=== PATIENT | female | born 1945 | race Caucasian/White ===

== ENCOUNTER 2016-11-01 19:02 | Emergency (ER) | payer MEDICARE, OTHER ==
[2016-11-01 19:27] VITALS: BP 134/47
--- NOTE | 2016-11-01 19:34 | EDM.PDOC ---
ED UPPER BACK/NECK PAIN/INJURY - General Chief Complaint: Back Pain or Injury Stated Complaint: LOW BACK PN Time Seen by Provider: 11/01/16 19:34 Source of Information: Reports: Patient History Limitations: Reports: No limitations - History of Present Illness INITIAL COMMENTS - FREE TEXT/NARRATIVE: patient presents to ED after 2 days of acute onset of mid thoracic back pain, worsening. She states pain is just between her shoulder blades, unprovoked by any known injury. 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 She denies any change in activity. She denies any chest pain, shortness of breath, cough, peripheral edema. Does report symptoms started yesterday morning at about 830 when she was filling juice cups. When she returned home, symptoms did improve with use of OTC NSAIDS, and she slept well, awoke without any return of pain until returning to work. She does have a fairly significant cardiac history, but has done well, and reports seeing her PCP as advised. Symptom Onset Date: 10/31/16 Symptom Onset Time: 08:30 Location: Reports: midline. Denies: radiating pain Quality: Reports: Pressure, Sharp Severity: moderate Place of Occurrence: work Improves with: Reports: Medication Worsens with: Reports: Movement Associated Symptoms: Denies: Chest pain, Cough, Paresthesias, Shortness of breath Treatments [employer]: Reports: NSAIDS - Related Data Allergies/ADRs: Allergies Allergy/AdvReac Type Severity Reaction Status Date / Time No Known Allergies Allergy Verified 11/01/16 19:15 Home Meds: Home Meds Aspirin [Halfprin] 81 mg PO DAILY 10/28/14 [History] Diazepam [Valium] 5 mg PO ASDIRECTED PRN 10/28/14 [History] Lisinopril [Prinivil] 5 mg PO DAILY 10/28/14 [History] atorvaSTATin [Lipitor] 40 mg PO DAILY 10/28/14 [History] glipiZIDE [Glucotrol] 10 mg PO BID 10/28/14 [History] metFORMIN [Glucophage] 1,000 mg PO BID 10/28/14 [History] Cyclobenzaprine [Flexeril] 10 mg PO BEDTIME #20 tablet 11/01/16 [Rx] Meloxicam 7.5 mg PO BID #30 tablet 11/01/16 [Rx] Social & Family History - Tobacco Use Smoking Status *Q: Former Smoker Years of Tobacco use: 2 - Alcohol Use Days Per Week of Alcohol Use: 0 - Recreational Drug Use Recreational Drug Use: No ED ROS GENERAL - Review of Systems Review Of Systems: See Below Constitutional: Denies: fever, chills Respiratory: Denies: shortness of breath, wheezing, cough Cardiovascular: Denies: Chest pain, Dyspnea on exertion, Edema, Palpitations Endocrine: Denies: fatigue GI/Abdominal: Denies: Abdominal pain Musculoskeletal: Reports: back pain (mid thoracic back pain, in between shoulder blades. ) Psychiatric: Reports: Anxiety (patient reports due to her cardiac history, she is more anxious, worried about her heart. ) ED EXAM, UPPER BACK/NECK PAIN - Physical Exam Exam: See Below Exam Limited By: No limitations General Appearance: alert, WD/WN, no apparent distress Throat/Mouth Exam: Normal oropharynx Neck Exam: non-tender, full range of motion Cardiovascular/Respiratory: regular rate, rhythm, no M/R/G, no respiratory distress GI/Abdominal: soft, non tender Back Exam: normal inspection, muscle spasm, paraspinal tenderness. No: vertebral tenderness Psychiatric: normal affect, anxious Course - Vital Signs Text/Narrative:: 2121 Patient was given ativan .5 mg and is resting comfortably. Did review EKG, which shows normal sinus rhythm with possible right bundle branch block. BP is stable at 134/74, pulse is 60, afebrile, o2 100% on RA. Did review labs, WBC is 10.25, mildly elevated, RBC 4.65, Hg 13.4, Hct 39.2, Creatinin. 1.2, Alk phos 144, troponin < .017 Last Recorded V/S: Last Vital Signs Temp 97.4 F 11/01/16 19:21 Pulse 60 11/01/16 19:21 Resp 16 11/01/16 19:21 BP 134/47 L 11/01/16 19:21 Pulse Ox 100 11/01/16 19:21 - Orders/Labs/Meds Orders: Active Orders 24 hr Category Date Time Status EKG 12 Lead [EKG Documentation Completion] [RC] STAT Care 11/01/16 20:21 Active Labs: Laboratory Tests 11/01/16 11/01/16 Range/Units 20:10 20:10 WBC 10.25 H (3.98-10.04) K/mm3 RBC 4.65 (3.98-5.22) M/mm3 Hgb 13.4 (11.2-15.7) gm/L Hct 39.2 (34.1-44.9) % MCV 84.3 (79.4-94.8) fl MCH 28.8 (25.6-32.2) pg MCHC 34.2 (32.2-35.5) g/dl RDW Std Deviation 42.5 (36.4-46.3) fL Plt Count 268 (182-369) K/mm3 MPV 10.2 (9.4-12.3) fl Neut % (Auto) 64.4 (34.0-71.1) % Lymph % (Auto) 25.2 (19.3-51.7) % Coleman % (Auto) 7.8 (4.7-12.5) % Eos % (Auto) 1.6 (0.7-5.8) Baso % (Auto) 0.8 (0.1-1.2) % Neut # 6.61 H (1.56-6.13) K/mm3 Lymph # 2.58 (1.18-3.74) K/mm3 Coleman # 0.80 H (0.24-0.36) K/mm3 Eos # 0.16 (0.04-0.36) K/mm3 Baso # 0.08 (0.01-0.08) K/mm3 Sodium 137 (136-145) mEq/L Potassium 4.9 (3.5-5.1) mEq/L Chloride 101 (98-107) mEq/L Carbon Dioxide 22 (21-32) mEq/L Anion Gap 18.9 H (5-15) BUN 28 H (7-18) mg/dL Creatinine 1.2 H (0.55-1.02) mg/dL Est Cr Clr Drug Dosing 34.99 mL/min Estimated GFR (MDRD) 45 (>60) mL/min BUN/Creatinine Ratio 23.3 H (14-18) Glucose 106 (80-115) mg/dL Calcium 9.7 (8.5-10.1) mg/dL Total Bilirubin 0.8 (0.2-1.0) mg/dL AST 22 (15-37) U/L ALT 28 (14-59) U/L Alkaline Phosphatase 144 H (46-116) U/L Troponin I < 0.017 (0.00-0.056) ng/mL Total Protein 7.4 (6.4-8.2) g/dl Albumin 4.6 (3.4-5.0) g/dl Globulin 2.8 gm/dL Albumin/Globulin Ratio 1.6 (1-2) Meds: Medications Discontinued Medications Generic Name Dose Route Start Last Admin Trade Name Patricio PRN Reason Stop Dose Admin Lorazepam 0.5 mg 11/01/16 19:50 Ativan IM 11/01/16 19:51 ONETIME ONE Lorazepam 0.5 mg 11/01/16 19:54 11/01/16 19:57 Ativan PO 11/01/16 19:55 0.5 mg ONETIME ONE Administration Departure - Departure Time of Disposition: 21:50 Disposition: Home, Self-Care 01 Condition: good Clinical Impression: Back pain Prescriptions: Cyclobenzaprine [Flexeril] 10 mg PO BEDTIME #20 tablet Meloxicam 7.5 mg PO BID #30 tablet Instructions: Back Pain, Adult, [id number] Referrals: Mara Rosen NP [Primary Care Provider] - Forms: ED Department Discharge Additional Instructions: Your lab work revealed a mildly elevated WBC, and slightly elevated creatinine. Do feel your symptoms are musculoskeletal, will plan to treat with an anti- inflammatory medication, meloxicam, take twice daily as directed (with food). Will also prescribe a muscle relaxer, use as bedtime. This medication can cause drowsiness, so do not take with other pain medication or medication that can be sedating. Recommend avoiding heavy lifting or repetitive motion, apply heat to affected area, and consider light massage to area. I do recommend followup with your PCP if 5-7 days to followup on your labs, or if symptoms persist, and do not hesitate to return to ED with worsening symptoms. - My Orders Last 24 Hours: My Active Orders 11/01/16 20:21 EKG 12 Lead [EKG Documentation Completion] [RC] STAT - Assessment/Plan Last 24 Hours: My Active Orders 11/01/16 20:21 EKG 12 Lead [EKG Documentation Completion] [RC] STAT
[2016-11-01] MEDS ORDERED: LORazepam 2 MG/ML MDV IM ONE (19:50)
[2016-11-01] MEDS ORDERED: LORazepam 0.5 MG Tab PO ONE (19:54)
== END 2016-11-01 21:34 | disposition home or self-care (01) ==
LOC: JD.ED 19:02
DX: M54.9 Dorsalgia, unspecified (principal); Z87.891 Personal history of nicotine dependence; Z79.82 Long term (current) use of aspirin; Z79.899 Other long term (current) drug therapy
CPT/HCPCS: 36415; 80053; 84484; 85025; 99284; A9270

== ENCOUNTER 2017-06-02 18:09 | Emergency (ER) | payer MEDICARE, OTHER ==
[2017-06-02 18:18] VITALS: BP 121/62
[2017-06-02] MEDS ORDERED: Sodium Chloride 0.9% 10 ML Syringe FLUSH PRN (18:42)
[2017-06-02] MEDS ORDERED: Nitroglycerin/D5W 25 MG/250 ML BOTTLE IV SCH (18:45)
--- NOTE | 2017-06-02 18:47 | EDM.PDOC ---
<Escobar Quick - Last Filed: 06/02/17 20:26> ED HPI GENERAL MEDICAL PROBLEM - General Chief Complaint: Chest Pain Stated Complaint: CHEST PAINS, DIFFICULTY BREATHING Time Seen by Provider: 06/02/17 18:30 - Related Data Allergies Allergy/AdvReac Type Severity Reaction Status Date / Time No Known Allergies Allergy Verified 06/02/17 18:46 Home Meds: Home Meds Aspirin [Halfprin] 81 mg PO DAILY 10/28/14 [History] Diazepam [Valium] 5 mg PO ASDIRECTED PRN 10/28/14 [History] Lisinopril [Prinivil] 5 mg PO DAILY 10/28/14 [History] atorvaSTATin [Lipitor] 40 mg PO DAILY 10/28/14 [History] glipiZIDE [Glucotrol] 10 mg PO BID 10/28/14 [History] metFORMIN [Glucophage] 1,000 mg PO BID 10/28/14 [History] Course - Vital Signs Last Recorded V/S: Last Vital Signs Temp 36.9 C 06/02/17 18:15 Pulse 67 06/02/17 18:15 Resp 18 06/02/17 18:15 BP 121/62 06/02/17 18:15 Pulse Ox 100 06/02/17 18:15 - Orders/Labs/Meds Orders: Active Orders 24 hr Category Date Time Status EKG 12 Lead [EKG Documentation Completion] [RC] STAT Care 06/02/17 18:26 Active Peripheral IV Care [RC] . DIRECTED Care 06/02/17 18:43 Active Peripheral IV Insertion Adult [OM.PC] Stat Oth 06/02/17 18:43 Ordered Labs: Laboratory Tests 06/02/17 06/02/17 06/02/17 Range/Units 18:25 18:25 18:25 WBC 6.70 (3.98-10.04) K/mm3 RBC 4.54 (3.98-5.22) M/mm3 Hgb 13.1 (11.2-15.7) gm/L Hct 38.3 (34.1-44.9) % MCV 84.4 (79.4-94.8) fl MCH 28.9 (25.6-32.2) pg MCHC 34.2 (32.2-35.5) g/dl RDW Std Deviation 43.0 (36.4-46.3) fL Plt Count 265 (182-369) K/mm3 MPV 9.7 (9.4-12.3) fl Neutrophils % (Manual) 68 H (40-60) % Band Neutrophils % 1 (0-10) % Lymphocytes % (Manual) 23 (20-40) % Atypical Lymphs % 0 % Monocytes % (Manual) 6 (2-10) % Eosinophils % (Manual) 2 (0.7-5.8) % Basophils % (Manual) 0 L (0.1-1.2) Platelet Estimate Adequate Plt Morphology Comment Normal RBC Morph Comment Normal PT 11.1 (8.0-13.0) SECONDS INR 1.02 Sodium 140 (136-145) mEq/L Potassium 4.5 (3.5-5.1) mEq/L Chloride 105 (98-107) mEq/L Carbon Dioxide 25 (21-32) mEq/L Anion Gap 14.5 (5-15) BUN 29 H (7-18) mg/dL Creatinine 1.1 H (0.55-1.02) mg/dL Est Cr Clr Drug Dosing TNP Estimated GFR (MDRD) 49 (>60) mL/min BUN/Creatinine Ratio 26.4 H (14-18) Glucose 122 H (80-115) mg/dL Calcium 9.5 (8.5-10.1) mg/dL Magnesium (1.8-2.4) mg/dl Total Bilirubin 0.8 (0.2-1.0) mg/dL AST 29 (15-37) U/L ALT 45 (14-59) U/L Alkaline Phosphatase 174 H (46-116) U/L CK-MB (CK-2) 1.8 (0-3.6) ng/ml Troponin I < 0.017 (0.00-0.056) ng/mL C-Reactive Protein 0.6 (<1.0) mg/dL NT-Pro-B Natriuret Pep 81 (0-125) pg/mL Total Protein 7.6 (6.4-8.2) g/dl Albumin 3.9 (3.4-5.0) g/dl Globulin 3.7 gm/dL Albumin/Globulin Ratio 1.1 (1-2) 06/02/17 Range/Units 18:25 WBC (3.98-10.04) K/mm3 RBC (3.98-5.22) M/mm3 Hgb (11.2-15.7) gm/L Hct (34.1-44.9) % MCV (79.4-94.8) fl MCH (25.6-32.2) pg MCHC (32.2-35.5) g/dl RDW Std Deviation (36.4-46.3) fL Plt Count (182-369) K/mm3 MPV (9.4-12.3) fl Neutrophils % (Manual) (40-60) % Band Neutrophils % (0-10) % Lymphocytes % (Manual) (20-40) % Atypical Lymphs % % Monocytes % (Manual) (2-10) % Eosinophils % (Manual) (0.7-5.8) % Basophils % (Manual) (0.1-1.2) Platelet Estimate Plt Morphology Comment RBC Morph Comment PT (8.0-13.0) SECONDS INR Sodium (136-145) mEq/L Potassium (3.5-5.1) mEq/L Chloride (98-107) mEq/L Carbon Dioxide (21-32) mEq/L Anion Gap (5-15) BUN (7-18) mg/dL Creatinine (0.55-1.02) mg/dL Est Cr Clr Drug Dosing Estimated GFR (MDRD) (>60) mL/min BUN/Creatinine Ratio (14-18) Glucose (80-115) mg/dL Calcium (8.5-10.1) mg/dL Magnesium 1.4 L (1.8-2.4) mg/dl Total Bilirubin (0.2-1.0) mg/dL AST (15-37) U/L ALT (14-59) U/L Alkaline Phosphatase (46-116) U/L CK-MB (CK-2) (0-3.6) ng/ml Troponin I (0.00-0.056) ng/mL C-Reactive Protein (<1.0) mg/dL NT-Pro-B Natriuret Pep (0-125) pg/mL Total Protein (6.4-8.2) g/dl Albumin (3.4-5.0) g/dl Globulin gm/dL Albumin/Globulin Ratio (1-2) Meds: Medications Discontinued Medications Generic Name Dose Route Start Last Admin Trade Name Patricio PRN Reason Stop Dose Admin Aspirin 324 mg 06/02/17 20:24 06/02/17 20:29 Aspirin PO 06/02/17 20:25 324 mg ONETIME ONE Administration Enoxaparin Sodium 70 mg 06/02/17 20:30 06/02/17 20:29 Lovenox SUBCUT 70 mg Q12HR EVA Administration Nitroglycerin/Dextrose 25 mg in 250 mls @ 6 mls/hr 06/02/17 18:45 06/02/17 19 :30 Nitroglycerin 25 Mg/D5w 250 Ml IV 0 mcg/min ASDIRECTED EVA 0 mls/hr 10 MCG/MIN Infusion Sodium Chloride 500 mls @ 1,000 mls/hr 06/02/17 19:52 06/02/17 19:55 Normal Saline IV 06/02/17 20:21 1,000 mls/hr .BOLUS ONE Administration Sodium Chloride Confirm 06/02/17 19:56 06/02/17 19:56 Normal Saline Administered 06/02/17 19:57 Not Given Dose 1,000 mls @ as directed .ROUTE .STK-MED ONE Sodium Chloride 500 mls @ 1,000 mls/hr 06/02/17 20:32 06/02/17 20:34 Normal Saline IV 06/02/17 21:01 1,000 mls/hr .BOLUS ONE Administration Sodium Chloride 10 ml 06/02/17 18:42 06/02/17 19:00 Saline Flush FLUSH 10 ml ASDIRECTED PRN Administration Keep Vein Open - Re-Assessments/Exams Free Text/Narrative Re-Assessment/Exam: 06/02/17 20:[address] Osborne. Her CBC looks good. Her creatinine was slightly elevated at 1.1. Her troponin is negative. Her pain is 1/10. Her BP dropped to the mid 80s systolic. I stopped the nitro drip and ordered a 500mg IV bolus. I gave her 324mg of aspirin. She has unstable angina. I feel she needs an angiogram. I called [facility] and talked with Dr Gore the ash worker alliances consultant and he agreed to the transfer. I also talked to Dr Cantu the hospitalist on and he wanted lovenox 1mg/kg subcutaneous. I ordered 70mg subcutaneous. I will transfer her by ambulance. Departure - Departure Time of Disposition: 20:30 Disposition: DC/Tfer to Acute Hospital 02 Reason for Transfer *Q: Other Condition: Fair Clinical Impression: Unstable angina Referrals: Mara Rosen NP [Primary Care Provider] - Forms: ED Department Discharge Additional Instructions: patient transferred to [facility] in [place] due to gradually worsening unstable angina over the last 6 weeks. Pain more intense and more frequent on minimal exertion particular today. Previous triple coronary bypass surgery and one stent. Not on any anticoagulants other than aspirin daily. Transferred to hospitalist telemetry unit for cardiology consultation and management i.e. the ie. requires a angiogram. - My Orders Last 24 Hours: My Active Orders 06/02/17 18:26 EKG 12 Lead [EKG Documentation Completion] [RC] STAT 06/02/17 18:43 Peripheral IV Care [RC] . DIRECTED Peripheral IV Insertion Adult [OM.PC] Stat - Assessment/Plan Last 24 Hours: My Active Orders 06/02/17 18:26 EKG 12 Lead [EKG Documentation Completion] [RC] STAT 06/02/17 18:43 Peripheral IV Care [RC] . DIRECTED Peripheral IV Insertion Adult [OM.PC] Stat <Edgard Osborne - Last Filed: 06/03/17 14:26> ED HPI GENERAL MEDICAL PROBLEM - General Source of Information: Reports: Patient, Family (daughter) History Limitations: Reports: No Limitations - History of Present Illness INITIAL COMMENTS - FREE TEXT/NARRATIVE: 71-year-old female presents to the ED with his chest pain meds worsens on exertion for the last several weeks. He just seemed to be worse today at work and she barely made it through the day. She had to stop and rest on multiple occasions to let the chest pain ease up but it never went away completely. At complete rest now she rates her chest pain is barely bear or 1 out of 10. Throughout the day on exertion she can make it is bad as 7 or 8 out of 10. She has a strong history of coronary disease having had triple bypass in 2006 and then a possible solitary stent placed in 2012. Work is been done at [facility] in [place]. She is continues to take a baby aspirin daily. She takes lisinopril small dose for hypertension. She quit smoking greater than 25 years ago. She is diabetic 17 years and still controlled with oral medications. Blood sugars been running between 120 and 150 she denies cough or sputum production. She denies any trauma to her chest. It is described as a heavy pressure sensation mostly retrosternal and precordial with no radiation to her neck or shoulder on exertion. Is been gradually getting worse over. Of 68 weeks. 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 Onset: Gradual (chest pressure development on exertion mostly in the workplace for the last 6-8 weeks. Gradually worsening) Duration: Week(s): Location: Reports: Chest Quality: Reports: Ache, Pressure. Denies: Sharp, Stabbing Severity: Moderate (can get as high as 7 or 8 out of 10.) Improves with: Reports: Rest Worsens with: Reports: Other, Movement Context: Reports: Activity (exertion such as in the workplace.). Denies: Exercise, Lifting, Sick Contact, Trauma Associated Symptoms: Reports: Chest Pain, Malaise, Shortness of Breath. 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: Nitroglycerin (has never had nitroglycerin tablets.) Chest Pain Score (Numeric/FACES): 4 Past Medical History HEENT History: Reports: None Respiratory History: Reports: None Gastrointestinal History: Reports: None Psychiatric History: Reports: Depression - Infectious Disease History Infectious Disease History: Reports: None - Past Surgical History Cardiovascular Surgical History: Reports: Coronary Artery Bypass, Coronary Artery Stent Social & Family History - Family History Family Medical History: Noncontributory - Tobacco Use Smoking Status *Q: Former Smoker Years of Tobacco use: 2 - Caffeine Use Caffeine Use: Reports: None - Alcohol Use Days Per Week of Alcohol Use: 0 - Recreational Drug Use Recreational Drug Use: No - Living Situation & Occupation Living situation: Reports: Occupation: Employed ED ROS GENERAL - Review of Systems Review Of Systems: See Below Constitutional: Reports: Fatigue. Denies: Fever, Chills, Malaise, Weakness, Night Sweats, Diaphoresis, Decreased Appetite, Weight Loss, Weight Gain HEENT: Reports: Glasses. Denies: Hearing Loss, Vertigo, Vision Change Respiratory: Reports: Shortness of Breath, Cough. Denies: Wheezing (on exertion ), Pleuritic Chest Pain, Sputum (occasionally usually nonproductive), Hemoptysis Cardiovascular: Reports: Chest Pain (see history of present illness), Dyspnea on Exertion, Edema (. Rarely has some swelling of her feet and ankles by the end of the day.). Denies: Blood Pressure Problem, Claudication, Lightheadedness , Orthopnea, Palpitations Endocrine: Reports: Fatigue GI/Abdominal: Reports: No Symptoms : Reports: Frequency Musculoskeletal: Reports: Neck Pain, Back Pain Skin: Reports: No Symptoms Neurological: Reports: No Symptoms Psychiatric: Reports: No Symptoms Hematologic/Lymphatic: Reports: No Symptoms Immunologic: Reports: No Symptoms ED EXAM, GENERAL - Physical Exam Exam: See Below Exam Limited By: No Limitations General Appearance: Alert, WD/WN, No Apparent Distress Eye Exam: Bilateral Eye: Normal Inspection Throat/Mouth: Normal Inspection, Normal Lips, Normal Oropharynx Head: Atraumatic, Normocephalic Neck: Normal Inspection, Supple, Non-Tender, Full Range of Motion. No: Carotid Bruit, Limited Range of Motion, Lymphadenopathy (L), Lymphadenopathy (R), Thyromegaly Respiratory/Chest: No Respiratory Distress, Lungs Clear, Normal Breath Sounds, No Accessory Muscle Use, Other (well-healed midline sternotomy incision.). No: Respiratory Distress Cardiovascular: Regular Rate, Rhythm, No Edema, No Gallop, No JVD, No Murmur, No Rub Peripheral Pulses: 1+: Posterior Tibial (L), Posterior Tibial (R), Dorsalis Pedis (L), Dorsalis Pedis (R) GI/Abdominal: Normal Bowel Sounds, Soft, Non-Tender, No Organomegaly, Other ( Evidence of previous cholecystectomy and 4.) Back Exam: Normal Inspection, Full Range of Motion. No: CVA Tenderness (L), CVA Tenderness (R) Extremities: Normal Inspection, Normal Range of Motion, Non-Tender, No Pedal Edema, Normal Capillary Refill Neurological: Alert, Oriented, CN II-XII Intact, Normal Cognition, Normal Gait, No Motor/Sensory Deficits Psychiatric: Normal Affect, Normal Mood Skin Exam: Warm, Dry, Intact, Normal Color, No Rash EKG INTERPRETATION EKG Date: 06/02/17 Time: 18:15 Rhythm: NSR Rate (Beats/Min): 62 [place]: LAD-Left [place] Deviation (-58 left anterior fascicular block) P-Wave: Enlarged (consider left atrial hypertrophy) QRS: LBBB (left anterior fascicular block) ST-T: Other (T-wave flattening V3. Inverted T-wave in V2 and V1.) QT: Prolonged (moderately prolonged) Course - Orders/Labs/Meds Labs: Laboratory Tests 06/02/17 06/02/17 06/02/17 Range/Units 18:25 18:25 18:25 WBC 6.70 (3.98-10.04) K/mm3 RBC 4.54 (3.98-5.22) M/mm3 Hgb 13.1 (11.2-15.7) gm/L Hct 38.3 (34.1-44.9) % MCV 84.4 (79.4-94.8) fl MCH 28.9 (25.6-32.2) pg MCHC 34.2 (32.2-35.5) g/dl RDW Std Deviation 43.0 (36.4-46.3) fL Plt Count 265 (182-369) K/mm3 MPV 9.7 (9.4-12.3) fl Neutrophils % (Manual) 68 H (40-60) % Band Neutrophils % 1 (0-10) % Lymphocytes % (Manual) 23 (20-40) % Atypical Lymphs % 0 % Monocytes % (Manual) 6 (2-10) % Eosinophils % (Manual) 2 (0.7-5.8) % Basophils % (Manual) 0 L (0.1-1.2) Platelet Estimate Adequate Plt Morphology Comment Normal RBC Morph Comment Normal PT 11.1 (8.0-13.0) SECONDS INR 1.02 Sodium 140 (136-145) mEq/L Potassium 4.5 (3.5-5.1) mEq/L Chloride 105 (98-107) mEq/L Carbon Dioxide 25 (21-32) mEq/L Anion Gap 14.5 (5-15) BUN 29 H (7-18) mg/dL Creatinine 1.1 H (0.55-1.02) mg/dL Est Cr Clr Drug Dosing TNP Estimated GFR (MDRD) 49 (>60) mL/min BUN/Creatinine Ratio 26.4 H (14-18) Glucose 122 H (80-115) mg/dL Calcium 9.5 (8.5-10.1) mg/dL Magnesium (1.8-2.4) mg/dl Total Bilirubin 0.8 (0.2-1.0) mg/dL AST 29 (15-37) U/L ALT 45 (14-59) U/L Alkaline Phosphatase 174 H (46-116) U/L CK-MB (CK-2) 1.8 (0-3.6) ng/ml Troponin I < 0.017 (0.00-0.056) ng/mL C-Reactive Protein 0.6 (<1.0) mg/dL NT-Pro-B Natriuret Pep 81 (0-125) pg/mL Total Protein 7.6 (6.4-8.2) g/dl Albumin 3.9 (3.4-5.0) g/dl Globulin 3.7 gm/dL Albumin/Globulin Ratio 1.1 (1-2) 06/02/17 Range/Units 18:25 WBC (3.98-10.04) K/mm3 RBC (3.98-5.22) M/mm3 Hgb (11.2-15.7) gm/L Hct (34.1-44.9) % MCV (79.4-94.8) fl MCH (25.6-32.2) pg MCHC (32.2-35.5) g/dl RDW Std Deviation (36.4-46.3) fL Plt Count (182-369) K/mm3 MPV (9.4-12.3) fl Neutrophils % (Manual) (40-60) % Band Neutrophils % (0-10) % Lymphocytes % (Manual) (20-40) % Atypical Lymphs % % Monocytes % (Manual) (2-10) % Eosinophils % (Manual) (0.7-5.8) % Basophils % (Manual) (0.1-1.2) Platelet Estimate Plt Morphology Comment RBC Morph Comment PT (8.0-13.0) SECONDS INR Sodium (136-145) mEq/L Potassium (3.5-5.1) mEq/L Chloride (98-107) mEq/L Carbon Dioxide (21-32) mEq/L Anion Gap (5-15) BUN (7-18) mg/dL Creatinine (0.55-1.02) mg/dL Est Cr Clr Drug Dosing Estimated GFR (MDRD) (>60) mL/min BUN/Creatinine Ratio (14-18) Glucose (80-115) mg/dL Calcium (8.5-10.1) mg/dL Magnesium 1.4 L (1.8-2.4) mg/dl Total Bilirubin (0.2-1.0) mg/dL AST (15-37) U/L ALT (14-59) U/L Alkaline Phosphatase (46-116) U/L CK-MB (CK-2) (0-3.6) ng/ml Troponin I (0.00-0.056) ng/mL C-Reactive Protein (<1.0) mg/dL NT-Pro-B Natriuret Pep (0-125) pg/mL Total Protein (6.4-8.2) g/dl Albumin (3.4-5.0) g/dl Globulin gm/dL Albumin/Globulin Ratio (1-2) Meds: Medications Discontinued Medications Generic Name Dose Route Start Last Admin Trade Name Freq PRN Reason Stop Dose Admin Aspirin 324 mg 06/02/17 20:24 06/02/17 20:29 Aspirin PO 06/02/17 20:25 324 mg ONETIME ONE Administration Enoxaparin Sodium 70 mg 06/02/17 20:30 06/02/17 20:29 Lovenox SUBCUT 70 mg Q12HR EVA Administration Nitroglycerin/Dextrose 25 mg in 250 mls @ 6 mls/hr 06/02/17 18:45 06/02/17 19 :30 Nitroglycerin 25 Mg/D5w 250 Ml IV 0 mcg/min ASDIRECTED EVA 0 mls/hr 10 MCG/MIN Infusion Sodium Chloride 500 mls @ 1,000 mls/hr 06/02/17 19:52 06/02/17 19:55 Normal Saline IV 06/02/17 20:21 1,000 mls/hr .BOLUS ONE Administration Sodium Chloride Confirm 06/02/17 19:56 06/02/17 19:56 Normal Saline Administered 06/02/17 19:57 Not Given Dose 1,000 mls @ as directed .ROUTE .STK-MED ONE Sodium Chloride 500 mls @ 1,000 mls/hr 06/02/17 20:32 06/02/17 20:34 Normal Saline IV 06/02/17 21:01 1,000 mls/hr .BOLUS ONE Administration Sodium Chloride 10 ml 06/02/17 18:42 06/02/17 19:00 Saline Flush FLUSH 10 ml ASDIRECTED PRN Administration Keep Vein Open - Radiology Interpretation Free Text/Narrative:: 71-year-old female presents to the ED with gradually worsening central chest pain on exertion for the last 6 weeks or more. Chest pains were more severe and intense and lasted longer today during the workplace. She would have to rest frequently for the pain to subside to some degree before she could continue on. I.e. unstable angina. She has a strong history of coronary disease requiring triple bypass in 2006 and a single stent placement in 2012. She failed her ECG stress test at that time. She has not had subsequent cardiology follow-up has not had an ECG stress test since stent placement. She remains on aspirin 81 mg daily. She remains on cholesterol-lowering agent. She has had diabetes 17 years never used insulin always oral meds and sugars seem to be good between 120 -150.plan ECG does not show any acute signs of ischemia. 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 Baseline however remains fairly normal. Plan nitro drip at 10 mcg/min.. Cee labs and a single chest x-ray to be done. - Re-Assessments/Exams Free Text/Narrative Re-Assessment/Exam: 06/02/17 19:20 Chest x-ray reveals mildly hyperinflated lung mejia. Cardiac silhouette is normal. Left hemidiaphragm is mildly elevated with a large amount of air in the GI tract just below the diaphragm. Blood pressure dropped to 92 systolic on the nitro drip at 10 mg/m. There was therefore reduced at 5 mcg/m. Blood pressure slowly recovering. Is currently 95/54. Heart rate is 67 and sinus. 06/02/17 19:29 blood pressure remains low on the nitro drip at 5 mcg/m 93/59. Will therefore be discontinued completely. Care will be turned over to Dr. Quick as it is change of shift. The plan is I believe this cardiology consultation should be obtained as soon as possible with a view to an angiogram being done. There is no doubt that she is experiencing increased chest pain on exertion in the workplace it is likely that one or 2 of her grafts have occluded over time. Labs are pending. Departure - Departure Reason for Transfer *Q: Other
[2017-06-02] MEDS ORDERED: Sodium Chloride 0.9% 500 ML IV ONE ×2 (19:52→20:32)
[2017-06-02] MEDS ORDERED: Sodium Chloride 0.9% 1,000 ML ONE (19:56)
[2017-06-02] MEDS ORDERED: Aspirin 81 MG Tab.Chew PO ONE (20:24)
[2017-06-02] MEDS ORDERED: Enoxaparin 80 MG/0.8 ML Syringe SUBCUT SCH (20:30)
--- NOTE | 2017-06-03 08:12 | CR ---
Chest: Portable view of the chest was obtained. Comparison: Previous chest x-ray of 10/28/14. Heart size is normal. Mild tortuosity of the thoracic aorta is seen. Previous CABG is noted. Old healed right-sided rib fractures are noted. Old healed right clavicle deformity from fracture is noted. Lungs are clear with no acute infiltrates. Impression: 1. Incidental findings as noted above. Nothing acute is suspected on portable chest x-ray. Diagnostic code #2
== END 2017-06-02 21:25 ==
LOC: JD.ED 18:09
DX: I20.0 Unstable angina (principal); F32.9 Major depressive disorder, single episode, unspecified; Z87.891 Personal history of nicotine dependence; Z95.1 Presence of aortocoronary bypass graft; Z95.5 Presence of coronary angioplasty implant and graft; Z79.82 Long term (current) use of aspirin; Z79.899 Other long term (current) drug therapy
CPT/HCPCS: 36415; 71010; 80053; 82553; 83735; 83880; 84484; 85025; 85610; 86140; 93005; 96361; 96365; 96372; 99285; A9270; J1650; J7040; J7050

== ENCOUNTER 2018-10-26 15:00 | Emergency (ER) | payer MEDICARE, OTHER ==
[2018-10-26 15:24] VITALS: BP 130/55
--- NOTE | 2018-10-26 18:07 | EDM.PDOC ---
ED HPI GENERAL MEDICAL PROBLEM - General Chief Complaint: Diabetic Complaint Stated Complaint: LIGHT HEADED/CONFUSED AND WEAK Time Seen by Provider: 10/26/18 17:57 Source of Information: Reports: Patient, Family (Son), RN Notes Reviewed History Limitations: Reports: No Limitations - History of Present Illness INITIAL COMMENTS - FREE TEXT/NARRATIVE: The patient states that she has type 2 diabetes mellitus, and that she Accu- Cheks 2 to 3 times a day, with a typical blood glucose range of 120 to 200. She states that she was started on Jardiance about one week ago per her PCP. She states that over the past week, since starting Jardiance, her Accu-Cheks have been in the range of 150 to 295. She now presents to the ED with a complaint episodes of of feeling lightheaded, confused, generally weak, with a dry mouth, lasting about one hour, for the past several days. She states that she felt short of breath earlier today, although does not feel dyspneic now. She denies recent fever, chills, cough, chest discomfort, palpitations, nausea, vomiting, constipation, diarrhea, bloody bowel movements, black bowel movements, joint aches, headaches, dysuria, urinary frequency, or rashes. No prior similar symptoms. The patient states that she saw her PCP yesterday, and that blood work was ordered, with the intention of it being drawn today, however, the patient did not get that blood work drawn. The patient states that she spoke to her PCPs RN today, but it is unclear what was decided. The patient's PCP is Eloisa Cardoza. Her Trust Operations Assistant is Dr. Agrawal. - Related Data Allergies Allergy/AdvReac Type Severity Reaction Status Date / Time zolpidem [From Ambien] AdvReac Disorientat Verified 03/01/18 07:45 ion Home Meds: Home Meds Aspirin [Halfprin] 81 mg PO DAILY 10/28/14 [History] diazePAM [Valium] 5 mg PO ASDIRECTED PRN 10/28/14 [History] metFORMIN [Glucophage] 1,000 mg PO BID 10/28/14 [History] Clopidogrel [Plavix] 75 mg PO DAILY 06/12/17 [History] amLODIPine [Norvasc] 5 mg PO DAILY 06/12/17 [History] traMADol [Ultram] 1 tab PO Q6HR PRN 10/26/18 [History] Past Medical History HEENT History: Reports: Impaired Vision Other HEENT History: wears eyeglasses Cardiovascular History: Reports: CAD, High Cholesterol, [place] (2001) Genitourinary History: Reports: Chronic Renal Insuffiency 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: Musculoskeletal History: Reports: Arthritis, Fracture Psychiatric History: Reports: Anxiety, Bipolar, Depression Endocrine/Metabolic History: Reports: Diabetes, Type II Hematologic History: Reports: Anemia - Infectious Disease History Infectious Disease History: Reports: Measles, Mumps - Past Surgical History HEENT Surgical History: Reports: Oral Surgery (wisdom teeth extraction) Cardiovascular Surgical History: Reports: Coronary Artery Bypass (x 3 vessel, 2001), Coronary Artery Stent (x 1, 2012) GI Surgical History: Reports: Appendectomy, Cholecystectomy (1999) Female Surgical History: Reports: Section (x 4), Tubal Ligation Social & Family History - Family History Family Medical History: Noncontributory - Tobacco Use Smoking Status *Q: Former Smoker Second Hand Smoke Exposure: Yes - Caffeine Use Caffeine Use: Reports: None - Alcohol Use Alcohol Use History: Yes Alcohol Use Frequency: Rarely - Recreational Drug Use Recreational Drug Use: No - Living Situation & Occupation Living situation: Reports: , with Family (Son) Occupation: Retired ED ROS GENERAL - Review of Systems Review Of Systems: ROS reveals no pertinent complaints other than HPI. ED EXAM, GENERAL - Physical Exam Exam: See Below Exam Limited By: No Limitations General Appearance: Alert, WD/WN, No Apparent Distress Eye Exam: Bilateral Eye: EOMI, Normal Inspection Ears: Normal External Exam, Hearing Grossly Normal Nose: Normal Inspection Throat/Mouth: Normal Inspection, Normal Lips, Normal Voice, No Airway Compromise Head: Atraumatic, Normocephalic Neck: Normal Inspection, Full Range of Motion Respiratory/Chest: No Respiratory Distress, Lungs Clear, Normal Breath Sounds, No Accessory Muscle Use Cardiovascular: Normal Peripheral Pulses, Regular Rate, Rhythm, No Gallop, No JVD, No Murmur, No Rub Peripheral Pulses: 4+: Radial (L), Radial (R) GI/Abdominal: Normal Bowel Sounds, Soft, Non-Tender, No Organomegaly, No Distention, No Abnormal Bruit, No Mass (Female) Exam: Deferred Rectal (Female) Exam: Deferred Back Exam: Normal Inspection, Full Range of Motion, NT Extremities: Normal Inspection, Normal Range of Motion, No Pedal Edema, Normal Capillary Refill Neurological: Alert, Oriented, Normal Cognition, No Motor/Sensory Deficits Psychiatric: Normal Affect Skin Exam: Warm, Dry, Intact, Normal Color, No Rash EKG INTERPRETATION EKG Date: 10/26/18 Time: 18:15 Rhythm: Other (Sinus bradycardia) Rate (Beats/Min): 57 [place]: LAD-Left [place] Deviation (2 LAFB) P-Wave: Present QRS: Normal (Late transition) ST-T: Normal QT: Prolonged (QTc 524 ms) Comparison: No Change (02/25/2018) Course - Vital Signs Last Recorded V/S: Last Vital Signs Temp 36.8 C 10/26/18 15:19 Pulse 62 10/26/18 15:19 Resp 16 10/26/18 15:19 BP 130/55 L 10/26/18 15:19 Pulse Ox 94 L 10/26/18 15:19 Orthostatic Blood Pressure [ 114/47 Standing] Orthostatic Blood Pressure [ 104/54 Sitting] Orthostatic Blood Pressure [ 93/39 Supine] - Orders/Labs/Meds Labs: Laboratory Tests 10/26/18 10/26/18 10/26/18 Range/Units 15:45 15:45 15:45 WBC 9.00 (3.98-10.04) K/mm3 RBC 4.09 (3.98-5.22) M/mm3 Hgb 11.1 L (11.2-15.7) gm/L Hct 34.1 (34.1-44.9) % MCV 83.4 (79.4-94.8) fl MCH 27.1 (25.6-32.2) pg MCHC 32.6 (32.2-35.5) g/dl RDW Std Deviation 39.3 (36.4-46.3) fL Plt Count 221 (182-369) K/mm3 MPV 9.9 (9.4-12.3) fl Neut % (Auto) 68.0 (34.0-71.1) % Lymph % (Auto) 20.1 (19.3-51.7) % [place] % (Auto) 8.9 (4.7-12.5) % Eos % (Auto) 2.3 (0.7-5.8) Baso % (Auto) 0.6 (0.1-1.2) % Neut # (Auto) 6.12 (1.56-6.13) K/mm3 Lymph # (Auto) 1.81 (1.18-3.74) K/mm3 [place] # (Auto) 0.80 H (0.24-0.36) K/mm3 Eos # (Auto) 0.21 (0.04-0.36) K/mm3 Baso # (Auto) 0.05 (0.01-0.08) K/mm3 Sodium 133 L (136-145) mEq/L Potassium 4.0 (3.5-5.1) mEq/L Chloride 97 L (98-107) mEq/L Carbon Dioxide 28 (21-32) mEq/L Anion Gap 12.0 (5-15) BUN 30 H (7-18) mg/dL Creatinine 1.4 H (0.55-1.02) mg/dL Est Cr Clr Drug Dosing 29.15 mL/min Estimated GFR (MDRD) 37 (>60) mL/min BUN/Creatinine Ratio 21.4 H (14-18) Glucose 139 H (83-115) mg/dL Calcium 8.6 (8.5-10.1) mg/dL Total Bilirubin 0.4 (0.2-1.0) mg/dL AST 30 (15-37) U/L ALT 29 (14-59) U/L Alkaline Phosphatase 102 (46-116) U/L Troponin I < 0.017 (0.00-0.056) ng/mL Total Protein 6.7 (6.4-8.2) g/dl Albumin 3.3 L (3.4-5.0) g/dl Globulin 3.4 gm/dL Albumin/Globulin Ratio 1.0 (1-2) Urine Color (Yellow) Urine Appearance (Clear) Urine pH (5.0-8.0) Ur Specific [place] (1.005-1.030) Urine Protein (Negative) Urine Glucose (UA) (Negative) Urine Ketones (Negative) Urine Occult Blood (Negative) Urine Nitrite (Negative) Urine Bilirubin (Negative) Urine Urobilinogen (0.2-1.0) Ur Leukocyte Esterase (Negative) Urine RBC (0-5) /hpf Urine WBC (0-5) /hpf Ur Epithelial Cells (0-5) /hpf Urine Bacteria (FEW) /hpf Urine Mucus (FEW) /hpf 10/26/18 Range/Units 16:23 WBC (3.98-10.04) K/mm3 RBC (3.98-5.22) M/mm3 Hgb (11.2-15.7) gm/L Hct (34.1-44.9) % MCV (79.4-94.8) fl MCH (25.6-32.2) pg MCHC (32.2-35.5) g/dl RDW Std Deviation (36.4-46.3) fL Plt Count (182-369) K/mm3 MPV (9.4-12.3) fl Neut % (Auto) (34.0-71.1) % Lymph % (Auto) (19.3-51.7) % [place] % (Auto) (4.7-12.5) % Eos % (Auto) (0.7-5.8) Baso % (Auto) (0.1-1.2) % Neut # (Auto) (1.56-6.13) K/mm3 Lymph # (Auto) (1.18-3.74) K/mm3 [place] # (Auto) (0.24-0.36) K/mm3 Eos # (Auto) (0.04-0.36) K/mm3 Baso # (Auto) (0.01-0.08) K/mm3 Sodium (136-145) mEq/L Potassium (3.5-5.1) mEq/L Chloride (98-107) mEq/L Carbon Dioxide (21-32) mEq/L Anion Gap (5-15) BUN (7-18) mg/dL Creatinine (0.55-1.02) mg/dL Est Cr Clr Drug Dosing mL/min Estimated GFR (MDRD) (>60) mL/min BUN/Creatinine Ratio (14-18) Glucose (83-115) mg/dL Calcium (8.5-10.1) mg/dL Total Bilirubin (0.2-1.0) mg/dL AST (15-37) U/L ALT (14-59) U/L Alkaline Phosphatase (46-116) U/L Troponin I (0.00-0.056) ng/mL Total Protein (6.4-8.2) g/dl Albumin (3.4-5.0) g/dl Globulin gm/dL Albumin/Globulin Ratio (1-2) Urine Color Light yellow (Yellow) Urine Appearance Clear (Clear) Urine pH 6.0 (5.0-8.0) Ur Specific [place] 1.010 (1.005-1.030) Urine Protein Negative (Negative) Urine Glucose (UA) 2+ H (Negative) Urine Ketones Negative (Negative) Urine Occult Blood Negative (Negative) Urine Nitrite Negative (Negative) Urine Bilirubin Negative (Negative) Urine Urobilinogen 0.2 (0.2-1.0) Ur Leukocyte Esterase 1+ H (Negative) Urine RBC Not seen (0-5) /hpf Urine WBC 0-5 (0-5) /hpf Ur Epithelial Cells 0-5 (0-5) /hpf Urine Bacteria Not seen (FEW) /hpf Urine Mucus Not seen (FEW) /hpf - Re-Assessments/Exams Free Text/Narrative Re-Assessment/Exam: 10/26/18 18:06 The cause of the patient's lightheadedness, confusion, and generalized weakness is not entirely clear. Her CBC and CMP are unremarkable. She has some chronic renal insufficiency, but no worse than prior. Her urinalysis is normal, without suggestion of a UTI. I have ordered a troponin level, ECG, and orthostatics, to make sure that the patient is not intravascularly depleted. 10/26/18 19:27 The patient is not orthostatic. 10/26/18 19:39 Test results discussed with the patient and her son. Today's workup is unremarkable, and does not explain the cause of her symptoms. I believe the patient can safely be discharged home, but I am recommending that if her symptoms persist, that she follow-up with her PCP. Departure - Departure Time of Disposition: 19:40 Disposition: Home, Self-Care 01 Condition: Good Clinical Impression: Lightheaded, Confused, General weakness - Discharge Information *PRESCRIPTION DRUG MONITORING PROGRAM REVIEWED*: Not Applicable *COPY OF PRESCRIPTION DRUG MONITORING REPORT IN PATIENT LAZARO: Not Applicable Instructions: Confusion, Weakness, [id number] Referrals: Eloisa Cardoza PA-C [Primary Care Provider] - Forms: ED Department Discharge Additional Instructions: You were seen in the emergency room for lightheadedness, confusion, generalized weakness, and dry mouth, after Jardiance was added to your medications about one week ago. Workup in the ER included blood work, a urinalysis, positional blood pressure checks, and an ECG. Your workup showed that you have chronic renal insufficiency, otherwise, your entire workup was unremarkable, and does not explain the cause of your symptoms. Your blood sugar was 139. You are not dehydrated. No significant electrolyte abnormalities were found. You are not anemic, and there is no sign of an infection. We recommend that you continue your current medications, including the Jardiance , but if your symptoms persist, that you follow-up with your PCP, Eloisa Cardoza. If any other problems, please do not hesitate to return to the ER.
== END 2018-10-26 19:48 | disposition home or self-care (01) ==
LOC: JD.ED 15:00
DX: R42 Dizziness and giddiness (principal); R41.0 Disorientation, unspecified; R53.1 Weakness; E78.00 Pure hypercholesterolemia, unspecified; I25.2 Old myocardial infarction; N18.9 Chronic kidney disease, unspecified; E11.9 Type 2 diabetes mellitus without complications; Z79.84 Long term (current) use of oral hypoglycemic drugs; Z87.891 Personal history of nicotine dependence; Z79.82 Long term (current) use of aspirin; Z88.8 Allergy status to other drugs, medicaments and biological substances
CPT/HCPCS: 36415; 80053; 81001; 84484; 85025; 93005; 93010; 99283; 99285-25

== ENCOUNTER 2018-11-22 13:15 | Emergency (ER) | payer MEDICARE, OTHER ==
[2018-11-22 13:25] VITALS: BP 128/72
[2018-11-22] MEDS ORDERED: Sodium Chloride 0.9% 500 ML IV ONE (13:27)
[2018-11-22] MEDS ORDERED: Sodium Chloride 0.9% 10 ML Syringe FLUSH PRN (13:27)
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
--- NOTE | 2018-11-22 13:57 | CT ---
Head CT Technique: Multiple axial sections through the brain were obtained. Intravenous contrast was utilized. Comparison: No prior head CT, prior MRI brain exam. Findings: Calcification seen in the region of the distal MC1 segment on the right side. This calcification measures about 1 cm in size. This finding is suspicious for calcified aneurysm. Ventricles along with basal cisterns and sulci over the convexities are mildly prominent. Atherosclerotic calcification is noted within the vertebral vessels. No abnormal parenchymal densities are seen. No evidence of intracranial hemorrhage. No midline shift or mass effect is seen. Bone window settings were reviewed which show no acute calvarial abnormality. Visualized sinuses are clear. Impression: 1. 1 cm calcification within the distal MC1 segment on the right side. This finding is suspicious for aneurysm. This is not appreciated with definite certainty on prior MRI. MR angiogram study could be obtained to confirm. 2. Nothing acute is otherwise seen on noncontrast head CT exam. Diagnostic code #5
--- NOTE | 2018-11-22 13:57 | CR ---
Chest: Portable view of the chest was obtained. Comparison: No prior chest x-ray. Heart size is normal. Tortuous thoracic aorta is seen. Sternotomy for CABG is noted. Multiple old right-sided rib fractures are seen which appear healed. Healed right-sided clavicle fracture is also noted. No acute parenchymal change is seen within either lung. Impression: 1. Incidental findings. Nothing acute is seen. Diagnostic code #2
--- NOTE | 2018-11-22 16:35 | MR ---
MR angiogram of brain Technique: [id number] MR angiogram study was obtained centered to the [place] of [place]. Intravenous contrast not utilized. Multiple MIP images were obtained in multiple projections. Comparison: Prior head CT study performed earlier on the same day (1:27 PM) There is arterial looping of the distal middle cerebral artery on the right side. This looping appears to be in the area of calcification without definite aneurysm. Distal vertebral arteries are patent. Basilar artery is patent. Both posterior cerebral arteries appear patent. Both carotid siphons appear patent. There is normal appearance of the middle and anterior cerebral arteries. No discrete aneurysm or focal stenosis is seen. Impression: 1. Arterial looping an area of previous calcification within the right middle cerebral artery. No definite aneurysm is seen. 2. MR angiogram of the brain is otherwise unremarkable. Diagnostic code #2
--- NOTE | 2018-11-22 16:39 | MR ---
MRI brain Technique: T1 sagittal; T2, T2 FLAIR, T2 gradient echo, T1 and diffusion axial; T1 and T2 gradient echo coronal images were obtained of the brain. Comparison: Prior head CT study performed earlier on same day (0 1:25 PM). Findings: Ventricles along with basal cisterns and sulci of the convexities are mildly prominent. Normal signal void is seen within the major cerebral arteries within the skull base. Small areas of scattered increased signal seen best on the FLAIR sequence within the periventricular and subcortical white matter having the appearance of small vessel ischemic demyelination change. No acute diffusion abnormalities are seen. Minimal areas of mucosal thickening is seen within both inferior maxillary sinuses. No midline shift or mass effect is seen. Impression: 1. Minimal senescent change as described above. 2. No acute diffusion abnormalities are seen. 3. Minimal sinus findings which are likely incidental. Diagnostic code #2
--- NOTE | 2018-11-22 16:50 | MR ---
MR angiogram of neck Technique: [id number] MR angiogram study was obtained centered to the [place]. Findings: Left proximal internal carotid artery shows very minimal stenosis which is felt not to be hemodynamic significant. Distal left common carotid artery and proximal internal carotid artery are otherwise unremarkable. There is narrowing at the right carotid bulb being seen. This is more severe than on the opposite side but still not felt to be hemodynamic significant. Visualized distal common carotid arteries are not optimally seen with no gross findings of stenosis. Proximal internal carotid arteries appear within normal limits. Impression: 1. Areas of atherosclerotic change as noted above. No definite hemodynamic significant stenosis is seen. If patient has normal creatinine, contrast MR angiogram study would be more accurate for evaluation. Diagnostic code #3
== END 2018-11-22 17:57 | disposition home or self-care (01) ==
LOC: JD.ED 13:15
DX: R55 Syncope and collapse (principal); E78.00 Pure hypercholesterolemia, unspecified; I25.10 Atherosclerotic heart disease of native coronary artery without angina pectoris; E11.22 Type 2 diabetes mellitus with diabetic chronic kidney disease; N18.9 Chronic kidney disease, unspecified; F41.9 Anxiety disorder, unspecified; F32.9 Major depressive disorder, single episode, unspecified; Z95.1 Presence of aortocoronary bypass graft; Z88.8 Allergy status to other drugs, medicaments and biological substances; Z79.82 Long term (current) use of aspirin; Z79.899 Other long term (current) drug therapy; Z79.01 Long term (current) use of anticoagulants; Z79.84 Long term (current) use of oral hypoglycemic drugs
CPT/HCPCS: 36415; 70450; 70544; 70547; 70551; 71045; 80053; 82962; 85025; 93005; 96360; 99285; J7040; 93010; 99284

== ENCOUNTER → 2019-08-18 | Day surgery (SDC) | payer MEDICARE, OTHER ==
[~2019-08-18] MED LIST: Cefuroxime 10 MG/ML SYRINGE EYELF SCH; Lidocaine 1% PF 2 ML SDV INJECT SCH; Pilocarpine 4% Ophth Soln 15 ML Bot EYELF SCH
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
[2019-08-18] MEDS: Polymyxin B/Trimethoprim 10 ML Bottle EYELF SCH ×3 (07:33→08:55)
[2019-08-18] MEDS: Brimonidine 0.2% Ophth Soln 5 ML Bottle EYELF SCH ×3 (07:38→08:55)
[2019-08-18] MEDS: Phenylephrine 2.5% Ophth Soln 2 ML Bot EYELF SCH ×5 (07:41→08:32)
[2019-08-18] MEDS: Tropicamide 1% Ophth Soln 15 ML Bottle EYELF SCH ×4 (07:45→08:18)
[2019-08-18] MEDS: Tetracaine HCl/PF 0.5% 4 ML Bottle EYELF SCH ×2 (08:25→08:43)
--- NOTE | 2019-08-18 08:54 | PCM48HPAN ---
Post Anesthesia Note - EVALUATION WITHIN 48HRS OF ANESTHETIC Vital Signs in Normal Range: Yes Patient Participated in Evaluation: Yes Respiratory Function Stable: Yes Airway Patent: Yes Cardiovascular Function Stable: Yes Hydration Status Stable: Yes Pain Control Satisfactory: Yes Nausea and Vomiting Control Satisfactory: Yes Mental Status Recovered: Yes Vital Signs: Last Vital Signs Temp 36.4 C 08/18/19 07:15 Pulse 64 08/18/19 07:15 Resp 16 08/18/19 07:15 BP 140/75 08/18/19 07:15 Pulse Ox 95 08/18/19 07:15
[2019-08-18 09:10] VITALS: BP 130/76; PULSE 65
== END | disposition home or self-care (01) ==
LOC: JD.SDS 06:53
PROVIDERS: ATTEND Ophthalmology
DX: E10.36 Type 1 diabetes mellitus with diabetic cataract (principal); H25.812 Combined forms of age-related cataract, left eye; H52.31 Anisometropia; H35.373 Puckering of macula, bilateral; H43.813 Vitreous degeneration, bilateral; H16.223 Keratoconjunctivitis sicca, not specified as Sjogren's, bilateral; H16.103 Unspecified superficial keratitis, bilateral; I25.10 Atherosclerotic heart disease of native coronary artery without angina pectoris; E78.00 Pure hypercholesterolemia, unspecified; I12.9 Hypertensive chronic kidney disease with stage 1 through stage 4 chronic kidney disease, or unspecified chronic kidney disease; E10.22 Type 1 diabetes mellitus with diabetic chronic kidney disease; N18.9 Chronic kidney disease, unspecified; F41.9 Anxiety disorder, unspecified; F32.9 Major depressive disorder, single episode, unspecified; M19.90 Unspecified osteoarthritis, unspecified site; Z96.1 Presence of intraocular lens; Z79.82 Long term (current) use of aspirin; Z79.02 Long term (current) use of antithrombotics/antiplatelets; Z79.4 Long term (current) use of insulin; Z79.899 Other long term (current) drug therapy; Z87.891 Personal history of nicotine dependence
CPT/HCPCS: 66984; 82962; J0697; J2001; C1780

== ENCOUNTER 2020-09-16 10:39 | Emergency (ER) | payer MEDICARE, OTHER ==
[2020-09-16 10:48] VITALS: BP 104/68; PULSE 74
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
--- NOTE | 2020-09-16 12:24 | CR ---
Chest: Portable view of the chest was obtained. Comparison: Prior chest x-ray of 11/22/18. Findings: Heart size is normal. Slight tortuosity of the thoracic aorta is seen. Multiple healed right-sided rib fractures are noted as well as old healed right clavicle fracture. Lungs are clear with no acute parenchymal change. Previous evidence of cholecystectomy. Prior sternotomy is noted for CABG. Impression: 1. Findings as noted above. 2. Nothing acute is appreciated. Diagnostic code #2
== END 2020-09-16 13:57 | disposition home or self-care (01) ==
LOC: JD.ED 10:39
DX: R07.89 Other chest pain (principal); I25.10 Atherosclerotic heart disease of native coronary artery without angina pectoris; E78.00 Pure hypercholesterolemia, unspecified; I25.2 Old myocardial infarction; E11.22 Type 2 diabetes mellitus with diabetic chronic kidney disease; D63.1 Anemia in chronic kidney disease; N18.9 Chronic kidney disease, unspecified; M19.90 Unspecified osteoarthritis, unspecified site; Z88.8 Allergy status to other drugs, medicaments and biological substances; Z79.4 Long term (current) use of insulin; Z79.82 Long term (current) use of aspirin; Z79.02 Long term (current) use of antithrombotics/antiplatelets; Z79.899 Other long term (current) drug therapy
CPT/HCPCS: 36415; 71045; 71045-26; 80053; 82553; 83735; 83880; 84484; 85025; 85379; 85610; 85730; 86140; 93010; 99284; 99285-25

== ENCOUNTER 2023-05-05 14:47 | Emergency (ER) | payer MEDICARE, OTHER ==
[2023-05-05 15:45] LABS: BASOPHILS ABSOLUTE AUTO 0.1 K/mm3 (0.0-0.2); BASOPHILS PERCENT AUTO 0.9 % (0.0-1.0); EOSINOPHILS ABSOLUTE AUTO 0.1 K/mm3 (0.0-0.4); HEMATOCRIT 38.2 % (37.0-47.0); IMMATURE GRAN ABSOLUTE AUTO 0.03 K/mm3 (0.00-0.05); IMMATURE GRAN PERCENT AUTO 0.4 % (0.0-0.4); LYMPHOCYTES ABSOLUTE AUTO 2.4 K/mm3 (1.0-4.8); LYMPHOCYTES PERCENT AUTO 29.3 % (24.0-44.0); MEAN CORPUSCULAR HEMOGLOBIN 29.7 pg (28.0-32.0); MEAN CORPUSCULAR VOLUME 87.2 fl (83.0-99.0); MEAN PLATELET VOLUME 9.5 fl (9.4-12.3); MONOCYTES ABSOLUTE AUTO 0.6 K/mm3 (0.0-0.8); MONOCYTES PERCENT AUTO 7.7 % (0.0-8.0); NEUTROPHILS ABSOLUTE AUTO 4.9 K/mm3 (1.8-7.7); NEUTROPHILS PERCENT AUTO 60.7 % (41.0-71.0); PLATELET COUNT,PLT 220 K/mm3 (150-400); RED BLOOD CELL COUNT 4.38 M/mm3 (4.10-5.30); WHITE BLOOD CELL COUNT,WBC 8.09 K/mm3 (3.9-11.3)
[2023-05-05 16:01] LABS: INR 1.1; PROTHROMBIN TIME 11.7 SECONDS (9.7-12.0)
[2023-05-05 16:03] LABS: PTT,PARTIAL THROMBOPLSTIN TIME 26.6 SECONDS (21.7-31.4)
[2023-05-05 16:11] LABS: A/G RATIO 1.2 (1-2); ALANINE AMINOTRANSFERASE,ALT 40 U/L (14-59); ALBUMIN 3.7 g/dl (3.4-5.0); ALKALINE PHOSPHATASE 79 U/L (46-116); ANION GAP 16.3 (5-15); ASPARTATE AMNIOTRANSFERASE,AST 35 U/L (15-37); BILIRUBIN TOTAL 0.6 mg/dL (0.2-1.0); BLOOD UREA NITROGEN,BUN 22 mg/dL (7-18); BUN/CREATININE RATIO 15.7 (14-18); C-REACTIVE PROTEIN <0.2 mg/dL (<1.0); CALCIUM 9.3 mg/dL (8.5-10.1); CARBON DIOXIDE,CO2 22 mEq/L (21-32); CHLORIDE,CL 105 mEq/L (98-107); CREATININE 1.4 mg/dL (0.55-1.02); EST CRCL DRUG DOSING (CG) 24.94 mL/min; ESTIMATED GFR 39 mL/min (>60); GLUCOSE RANDOM 89 mg/dL (70-99); MAGNESIUM 1.7 mg/dL (1.8-2.4); POTASSIUM,K 4.3 mEq/L (3.5-5.1); PROTEIN TOTAL,TP 6.8 g/dl (6.4-8.2); SODIUM,NA 139 mEq/L (136-145); TROPONIN I HIGH SENSITIVITY 5 pg/mL (<=51)
[2023-05-05 17:36] VITALS: BP 104/77; PULSE 68
== END 2023-05-05 17:32 | disposition home or self-care (01) ==
LOC: JD.ED 14:47
DX: R20.0 Anesthesia of skin (principal); E11.22 Type 2 diabetes mellitus with diabetic chronic kidney disease; N18.9 Chronic kidney disease, unspecified; I25.10 Atherosclerotic heart disease of native coronary artery without angina pectoris; E78.00 Pure hypercholesterolemia, unspecified; Z88.5 Allergy status to narcotic agent; Z88.8 Allergy status to other drugs, medicaments and biological substances; Z79.82 Long term (current) use of aspirin; Z79.4 Long term (current) use of insulin; Z79.899 Other long term (current) drug therapy; Z87.891 Personal history of nicotine dependence
CPT/HCPCS: 36415; 70450; 70450-26; 80053; 83735; 84484; 85025; 85610; 85652; 85730; 86140; 93005; 93010; 99283; 99284

== ENCOUNTER 2023-05-10 16:51 | Emergency (ER) | payer MEDICARE, OTHER ==
[2023-05-10] MEDS ORDERED: Sodium Chloride 0.9% 10 ML Syringe FLUSH PRN (17:28)
[2023-05-10 17:35] LABS: BASOPHILS ABSOLUTE AUTO 0.1 K/mm3 (0.0-0.2); BASOPHILS PERCENT AUTO 1.3 % (0.0-1.0); EOSINOPHILS ABSOLUTE AUTO 0.2 K/mm3 (0.0-0.4); EOSINOPHILS PERCENT AUTO 1.8 % (0.0-6.0); HEMATOCRIT 38.8 % (37.0-47.0); HEMOGLOBIN 13.1 gm/dl (12.0-16.0); IMMATURE GRAN ABSOLUTE AUTO 0.01 K/mm3 (0.00-0.05); IMMATURE GRAN PERCENT AUTO 0.1 % (0.0-0.4); LYMPHOCYTES ABSOLUTE AUTO 1.9 K/mm3 (1.0-4.8); LYMPHOCYTES PERCENT AUTO 22.8 % (24.0-44.0); MEAN CORPUSCULAR HEMOGLOBIN 29.4 pg (28.0-32.0); MEAN CORPUSCULAR HGB CONC 33.8 g/dl (32.0-36.0); MEAN CORPUSCULAR VOLUME 87.2 fl (83.0-99.0); MEAN PLATELET VOLUME 9.6 fl (9.4-12.3); MONOCYTES ABSOLUTE AUTO 0.8 K/mm3 (0.0-0.8); MONOCYTES PERCENT AUTO 9.9 % (0.0-8.0); NEUTROPHILS ABSOLUTE AUTO 5.4 K/mm3 (1.8-7.7); NEUTROPHILS PERCENT AUTO 64.1 % (41.0-71.0); PLATELET COUNT,PLT 226 K/mm3 (150-400); RED BLOOD CELL COUNT 4.45 M/mm3 (4.10-5.30); WHITE BLOOD CELL COUNT,WBC 8.48 K/mm3 (3.9-11.3)
[2023-05-10 17:46] LABS: A/G RATIO 1.3 (1-2); ALBUMIN 3.8 g/dl (3.4-5.0); ANION GAP 14.7 (5-15); BILIRUBIN TOTAL 0.8 mg/dL (0.2-1.0); BUN/CREATININE RATIO 19.4 (14-18); CALCIUM 9.3 mg/dL (8.5-10.1); CREATININE 1.6 mg/dL (0.55-1.02); EST CRCL DRUG DOSING (CG) 24.03 mL/min; MAGNESIUM 1.7 mg/dL (1.8-2.4); POTASSIUM,K 4.7 mEq/L (3.5-5.1); PROTEIN TOTAL,TP 6.7 g/dl (6.4-8.2)
[2023-05-10] MEDS ORDERED: Sodium Chloride 0.9% 500 ML IV ONE (18:11)
[2023-05-10 20:01] VITALS: BP 113/58; PULSE 60
== END 2023-05-10 19:59 | disposition home or self-care (01) ==
LOC: JD.ED 16:51
DX: R55 Syncope and collapse (principal); I25.10 Atherosclerotic heart disease of native coronary artery without angina pectoris; E78.00 Pure hypercholesterolemia, unspecified; I25.2 Old myocardial infarction; E11.22 Type 2 diabetes mellitus with diabetic chronic kidney disease; N18.9 Chronic kidney disease, unspecified; Z88.5 Allergy status to narcotic agent; Z88.8 Allergy status to other drugs, medicaments and biological substances; Z79.82 Long term (current) use of aspirin; Z79.02 Long term (current) use of antithrombotics/antiplatelets; Z79.4 Long term (current) use of insulin; Z79.899 Other long term (current) drug therapy; Z77.22 Contact with and (suspected) exposure to environmental tobacco smoke (acute) (chronic)
CPT/HCPCS: 36415; 80053; 83735; 85025; 93005; 96360; 99284; J3490; J7030; 93010; 99283